=== PATIENT | male | born 1980 ===

== ENCOUNTER 2016-12-24 06:30 | Emergency (ER) | payer OTHER ==
[2016-12-24 06:31] VITALS: BMI 26.4
[2016-12-24 06:39] VITALS: RESP 16
[2016-12-24] MEDS ORDERED: Naproxen 550 mg Tab PO STA (07:29)
[2016-12-24] MEDS ORDERED: Naproxen 550 mg Tab PO ONE (07:33)
--- NOTE | 2016-12-24 08:06 | C.PDOC ---
History Of Present Illness 36-year-old male presents to the presents to the emergency department w/ right knee pain and swelling x4-5 days. He denies trauma, fever, rashes. Pt currently unemployed - denies any repeated stressors or movement. Pt took Aleve w/ mild relief of symtoms. He has no other complaints at this time. Time Seen by Provider: 12/24/16 07:11 Chief Complaint (Nursing): Lower Extremity Problem/Injury History Per: Patient History/Exam Limitations: no limitations Onset/Duration Of Symptoms: Days Current Symptoms Are (Timing): Still Present Severity: Mild Past Medical History Reviewed: Historical Data, Nursing Documentation, Vital Signs Vital Signs: Last Vital Signs Temp 98.5 F 12/24/16 08:38 Pulse 86 12/24/16 08:38 Resp 16 12/24/16 08:38 BP 132/76 12/24/16 08:38 Pulse Ox 96 12/24/16 09:15 - Medical History PMH: Denies: Hepatitis, Hiatal Hernia, HIV, HTN - [employer] Procedures DETOXIFICATION SERVICES FOR SUBSTANCE ABUSE TREATMENT (05/30/16) DPT ADMINISTRATION (12/19/13) GROUP PSYCHOTHERAPY (10/12/15) IMMOBILIZ/WOUND ATTN NEC (12/19/13) Family History: States: No Known Family Hx - Social History Hx Tobacco Use: Yes Hx Alcohol Use: No Hx Substance Use: Yes (Heroin) - Immunization History Hx Tetanus Toxoid Vaccination: No Hx Influenza Vaccination: No Hx Pneumococcal Vaccination: No Review Of Systems Except As Marked, All Systems Reviewed And Found Negative. Constitutional: Negative for: Fever, Chills Gastrointestinal: Negative for: Nausea, Vomiting Musculoskeletal: Positive for: Leg Pain (right knee) Skin: Negative for: Rash Neurological: Negative for: Weakness, Numbness Physical Exam - Physical Exam Appears: Well, Non-toxic, No Acute Distress Skin: Warm, Dry, No Rash Oral Mucosa: Moist Cardiovascular: Rhythm Regular Respiratory: Normal Breath Sounds, No Rales, No Rhonchi, No Wheezing Extremity: Normal ROM, No Tenderness, No Calf Tenderness, Capillary Refill (< 2 sec all digits ), No Deformity, No Swelling, Other (R Knee: Mild tenderness to palpation of patella/popliteal area. No masses. No swelling. ) Pulses: Left Dorsalis Pedis: Normal, Right Dorsalis Pedis: Normal Neurological/Psych: Oriented x3, Normal Motor, Normal Sensation Gait: Steady ED Course And Treatment O2 Sat by Pulse Oximetry: 96 (RA) Pulse Ox Interpretation: Normal - Other Rad right knee xray X-Ray: Interpreted by Me, Viewed By Me (no fractures/dislocations) Progress Note: Plan: Xray of right knee ordered and reviewed. Patient given PO Naprosyn for pain. Reevaluation Time: 08:20 Reassessment Condition: Improved (Patient reassessed, states he feels better. He is ambulating normally in ED. Bernabe wrap applied to area by dialysis chief equipment technician. Patient given Rx for Naprosyn and instructed to follow up with orthopedics within 1 week. He understands he should return to ED if symptoms worsen.) Disposition Counseled Patient/Family Regarding: Studies Performed, Diagnosis, Need For Followup, Rx Given - Disposition Referrals: Dk Alexandre III, MD [Staff Provider] - [facility] [Outside] [facility] [Outside] Disposition: HOME/ ROUTINE Disposition Time: 08:20 Condition: STABLE Additional Instructions: FOLLOW UP WITH ORTHOPEDICS WITHIN 1 WEEK USE MEDICATION NEEDED RETURN TO ER IF SYMPTOMS WORSEN Prescriptions: Naproxen [Naprosyn] 1 tab PO BID PRN #25 tab PRN Reason: Pain Instructions: Knee Pain (ED) Print Language: GUINEAN - POA Present On Arrival: None - Clinical Impression Clinical Impression: Right knee sprain - Scribe Statement The provider has reviewed the documentation as recorded by the Jorgeibavi Michaels All medical record entries made by the Jorgeibavi were at my direction and personally dictated by me. I have reviewed the chart and agree that the record accurately reflects my personal performance of the history, physical exam, medical decision making, and the department course for this patient. I have also personally directed, reviewed, and agree with the discharge instructions and disposition.
[2016-12-24 08:39] VITALS: BP 132/76; PULSE 86; TEMP 98.5
[2016-12-24 09:15] VITALS: O2SAT 96
--- NOTE | 2016-12-24 10:06 | RAD ---
PROCEDURE: Right Knee Radiographs. HISTORY: right knee pain COMPARISON: None. FINDINGS: BONES: Normal. No fracture. JOINTS: Normal. No osteoarthritis. JOINT EFFUSION: None. OTHER FINDINGS: None. IMPRESSION: No acute displaced fracture nor dislocation
== END 2016-12-24 08:39 | disposition home or self-care (01) ==
LOC: C.ER 06:30
DX: S83.91XA Sprain of unspecified site of right knee, initial encounter (principal); X58.XXXA Exposure to other specified factors, initial encounter; Y92.9 Unspecified place or not applicable